=== PATIENT | male | born 1990 | race American Indian/Alaskan Native ===

== ENCOUNTER 2018-01-26 14:57 | Emergency (ER) | payer BC ==
[2018-01-26 15:43] VITALS: BP 119/76; O2SAT 99
[2018-01-26] MEDS ORDERED: Acetaminophen 160 mg/5 ml UD PO STA (16:13)
--- NOTE | 2018-01-26 16:17 | ED PDOC ---
HPI: CCC, URI, Sore Throat Time Seen by Provider: 01/26/18 16:04 Chief Complaint (Nursing): ENT Problem Chief Complaint (Provider): Sore Throat History Per: Patient History/Exam Limitations: no limitations Onset/Duration Of Symptoms: Days (x2) Current Symptoms Are (Timing): Still Present Sick Contacts (Context): Family Member(s) (, strep throat) Associated Symptoms: Sore Throat, Other (body aches). denies: Nausea, Vomiting Additional Complaint(s): Jonathan Vasquez is a 27 year old male with a past medical history of Non-Hodgkin's lymphoma, who is presenting to the ER with complaints of sore throat with associated body aches, onset 2 days ago. Patient reports that his sore throat is worse when swallowing or talking, and his was recently diagnosed with strep throat and is on her 4th day of antibiotics. He also reports that currently, he is not undergoing any treatment for his lymphoma. Patient denies any chest pain, shortness of breath, nausea or vomiting. He offers no other medical complaints at this time. PMD: none provided Past Medical History Reviewed: Historical Data, Nursing Documentation, Vital Signs Vital Signs: Last Vital Signs Temp 102 F H 01/26/18 16:23 Pulse 110 H 01/26/18 15:40 Resp 18 01/26/18 15:40 BP 119/76 01/26/18 15:40 Pulse Ox 99 01/26/18 16:34 - Medical History Other PMH: Non-Hodgkin's lymphoma - Surgical History Surgical History: Back Surgery (benign tumor) - Family History Family History: States: No Known Family Hx - Social History Current smoker - smoking cessation education provided: Yes Drugs: Denies - Home Medications Home Medications: Ambulatory Orders Medication Instructions Recorded Amoxicillin/Clavulanate [Augmentin 10 ml PO BID 7 Days ml 01/26/18 400-57] - Allergies Allergies/Adverse Reactions: Allergies Allergy/AdvReac Type Severity Reaction Status Date / Time No Known Allergies Allergy Verified 01/26/18 15:40 Review of Systems ROS Statement: Except As Marked, All Systems Reviewed And Found Negative Constitutional: Positive for: Other (body aches) ENT: Positive for: Throat Pain Cardiovascular: Negative for: Chest Pain Respiratory: Negative for: Shortness of Breath Gastrointestinal: Negative for: Nausea, Vomiting Physical Exam - Reviewed Nursing Documentation Reviewed: Yes Vital Signs Reviewed: Yes - Physical Exam Appears: Positive for: Non-toxic, In Acute Distress (mild distress) Skin: Positive for: Normal Color, Warm (Febrile), Dry ENT: Positive for: Pharyngeal Erythema, Tonsillar Swelling (bilateral purulent, enlarged), Other ((-) uvula deviation, (-) trismus, (+) moist mucous membranes) Lymphatic: Positive for: Adenopathy (bilateral submandibular lymphadenopathy) - ECG O2 Sat by Pulse Oximetry: 99 (RA) Pulse Ox Interpretation: Normal Medical Decision Making Medical Decision Making: Time: 16:13 Impression: tonsillectomy, strep secondary to close exposure Initial Plan: --Solu-Medrol 125 mg IM --Tylenol 960 mg PO Scribe Attestation: Documented by Silvia Amador acting as a scribe for Keri Garrett MD. Scribe Attestation: All medical record entries made by the Scribe were at my direction and personally dictated by me. I have reviewed the chart and agree that the record accurately reflects my personal performance of the history, physical exam, medical decision making, and the department course for this patient. I have also personally directed, reviewed, and agree with the discharge instructions and disposition. Disposition - Clinical Impression Clinical Impression: Tonsillitis Counseled Patient/Family Regarding: Studies Performed, Diagnosis, Need For Followup, Rx Given - Disposition Referrals: [facility] [Outside] Disposition: Routine/Home Disposition Time: 16:16 Condition: STABLE Additional Instructions: DRINK PLENTY OF HYDRATING FLUIDS AND REST TAKE TYLENOL AND/OR MOTRIN FOR PAIN OR FEVER FOLLOW UP WITH CLINIC IN 1-2 WEEKS TO SEE HOW YOU ARE DOING Prescriptions: Amoxicillin/Clavulanate [Augmentin 400-57] 10 ml PO BID 7 Days ml Instructions: Strep Throat (DC) Forms: [facility] ED School/Work Excuse
[2018-01-26 16:47] VITALS: PULSE 103; RESP 16; TEMP 99
== END 2018-01-26 16:44 | disposition home or self-care (01) ==
LOC: H.ER 14:57
DX: J03.90 Acute tonsillitis, unspecified (principal); R50.9 Fever, unspecified; F17.200 Nicotine dependence, unspecified, uncomplicated
CPT/HCPCS: 96372; 99283; J2930

== ENCOUNTER 2018-12-13 08:49 | Emergency (ER) | payer BC ==
[2018-12-13] MEDS ORDERED: Albuterol-Ipratrop 3 mg / 0.5 (3 ml) UD INH STA (09:27)
[2018-12-13] MEDS ORDERED: Albuterol-Ipratrop 3 mg / 0.5 (3 ml) UD ONE (09:33)
--- NOTE | 2018-12-13 09:46 | ED PDOC ---
History of Present Illness History of Present Illness: Jonathan Vasquez is a 28 year old male, with no significant past medical history, who presents to the emergency department complaining of chills, nonproductive cough, sweats and body aches ongoing for x3 days. Patient reports having a Fever of 101 x3 days ago and states he has a throat pain with coughing. He took Mucinex at 03:45 today. He denies runny nose, chest pain, shortness of breath, nausea, vomit, headache or other medical complaints. PMD: None provided. HPI: Influenza Time Seen by Provider: 12/13/18 09:13 Chief Complaint: Flu-like Symptoms Chief Complaint (Provider): Flu-like symptoms History Per: Patient Exam Limitations: no limitations, physical impairment Onset/Duration Of Symptoms: Days (x3) Symptoms include: fever, bodyaches, sore throat (w/ cough), cough. denies: vomiting, chest pain, difficulty breathing Past Medical History Reviewed: Historical Data, Nursing Documentation, Vital Signs Vital Signs: Last Vital Signs Temp 98.8 F 12/13/18 08:56 Pulse 88 12/13/18 08:56 Resp 18 12/13/18 08:56 BP 124/76 12/13/18 08:56 Pulse Ox 99 12/13/18 08:56 - Medical History PMH: Bronchitis - Surgical History Surgical History: Back Surgery (benign tumor) Other surgeries: benign tumor removal from back - Family History Family History: States: Unknown Family Hx - Social History Current smoker - smoking cessation education provided: No Alcohol: None Drugs: Denies - Home Medications Home Medications: Ambulatory Orders Medication Instructions Recorded Amoxicillin/Clavulanate [Augmentin 10 ml PO BID 7 Days ml 01/26/18 400-57] Albuterol HFA [Ventolin HFA 90 2 puff IH [id number] PRN #1 bottle 12/13/18 mcg/actuation (8 g)] Azithromycin [Zithromax] 250 mg PO DAILY #4 tab 12/13/18 - Allergies Allergies/Adverse Reactions: Allergies Allergy/AdvReac Type Severity Reaction Status Date / Time No Known Allergies Allergy Verified 01/26/18 15:40 Review of Systems ROS Statement: Except As Marked, All Systems Reviewed And Found Negative Constitutional: Positive for: Fever (resolved), Chills, Sweats, Other (body aches) ENT: Negative for: Nose Discharge (runny nose) Cardiovascular: Negative for: Chest Pain Respiratory: Positive for: Cough (non-productive). Negative for: Shortness of Breath Gastrointestinal: Negative for: Nausea, Vomiting Neurological: Negative for: Headache Physical Exam - Reviewed Nursing Documentation Reviewed: Yes Vital Signs Reviewed: Yes - Physical Exam Appears: Positive for: No Acute Distress Head Exam: Positive for: ATRAUMATIC, NORMAL INSPECTION, NORMOCEPHALIC Skin: Positive for: Normal Color, Warm, Dry Eye Exam: Positive for: Normal appearance, EOMI, PERRL ENT: Positive for: Normal ENT Inspection, Pharynx Is (clear). Negative for: Pharyngeal Erythema, Tonsillar Exudate, Tonsillar Swelling Neck: Positive for: Normal, Painless ROM, Supple Cardiovascular/Chest: Positive for: Regular Rate, Rhythm. Negative for: Murmur Respiratory: Positive for: Normal Breath Sounds. Negative for: Respiratory Distress Gastrointestinal/Abdominal: Positive for: Normal Exam, Soft. Negative for: Tenderness, Guarding, Rebound Back: Positive for: Normal Inspection. Negative for: L CVA Tenderness, R CVA Tenderness, Vertebral Tenderness Extremity: Positive for: Normal ROM (upper and lower extremities). Negative for: Deformity, Swelling Neurologic/Psych: Positive for: Alert, Oriented Medical Decision Making Medical Decision Making: Time: 09:13 Initial Impression: Viral illness Initial Plan: --Chest two views (PA/LAT) [RAD] --Duoneb 3 ml INH --Influenza A B --Reevaluation 10:10 CXR FINDINGS: LINES AND TUBES: None. LUNG AND PLEURA: The lungs are well inflated and clear. No pleural effusion or pneumothorax. HEART AND MEDIASTINUM: The heart is not enlarged. No aortic atherosclerotic calcifications present. The hilar and mediastinal contours are within normal limits. SKELETAL STRUCTURES: The bony structures are within normal limits for the patient's age. VISUALIZED UPPER ABDOMEN: Normal. OTHER FINDINGS: None. IMPRESSION: No active pulmonary disease. 11:45 Upon provider evaluation patient is medically stable, and requires no further treatment in the ED at this time. Patient will be discharged home. Counseling was provided and all questions were answered regarding diagnosis and need for follow up with PMD. There is agreement to discharge plan. Return if symptoms persist or worsen. Scribe Attestation: Documented by Az De La Rosa, acting as a scribe for Jazmine Schwab MD Provider Scribe Attestation: All medical record entries made by the Scribe were at my direction and personally dictated by me. I have reviewed the chart and agree that the record accurately reflects my personal performance of the history, physical exam, medical decision making, and the department course for this patient. I have also personally directed, reviewed, and agree with the discharge instructions and disposition. - ECG O2 Sat by Pulse Oximetry: 99 Disposition - Clinical Impression Clinical Impression: Acute bronchitis - Disposition Referrals: [facility] [Outside] Disposition: Routine/Home Disposition Time: 11:45 Condition: STABLE Prescriptions: Albuterol HFA [Ventolin HFA 90 mcg/actuation (8 g)] 2 puff IH [id number] PRN #1 bottle PRN Reason: Shortness Of Breath Azithromycin [Zithromax] 250 mg PO DAILY #4 tab Instructions: Acute Bronchitis Forms: [employer] (Montenegrin)
--- NOTE | 2018-12-13 10:14 | RAD ---
Date of service: 12/13/2018 HISTORY: Cough COMPARISON: No prior. TECHNIQUE: Chest PA and lateral FINDINGS: LINES AND TUBES: None. LUNG AND PLEURA: The lungs are well inflated and clear. No pleural effusion or pneumothorax. HEART AND MEDIASTINUM: The heart is not enlarged. No aortic atherosclerotic calcifications present. The hilar and mediastinal contours are within normal limits. SKELETAL STRUCTURES: The bony structures are within normal limits for the patient's age. VISUALIZED UPPER ABDOMEN: Normal. OTHER FINDINGS: None. IMPRESSION: No active pulmonary disease.
[2018-12-13] MEDS ORDERED: Sodium Chloride 0.9% 1,000 ML IV STA (12:51)
[2018-12-13 13:16] VITALS: RESP 16
[2018-12-13 13:32] LABS: VENOUS BLOOD GAS BASE EXCESS 3.3 mmol/L (0.0-2.0); VENOUS BLOOD GAS PCO2 48 mmHg (40-60); VENOUS BLOOD GAS PO2 24 mm/Hg (30-55); VENOUS BLOOD PH 7.39 (7.32-7.43)
[2018-12-13 13:33] LABS: BASO % 0.4 % (0.0-2.0); EOS % 0.2 % (0.0-4.0); HEMOGLOBIN 15.9 g/dL (12.0-18.0); LYMPH # 0.9 K/uL (1.0-4.3); MEAN CORPUSCULAR HEMOGLOBIN 26.4 pg (27.0-31.0); MEAN CORPUSCULAR HGB CONC 32.6 g/dL (33.0-37.0); MEAN PLATELET VOLUME 6.8 fl (7.2-11.7); MONO # 1.1 K/uL (0.0-0.8); MONO % 13.3 % (0.0-10.0); NEUT % 75.1 % (50.0-75.0); NRBC % 0.2 % (0.0-0.0); RBC 6.03 Mil/uL (4.40-5.90); RED CELL DISTRIBUTION WIDTH 14.9 % (11.5-14.5); WHITE BLOOD COUNT 8.1 K/uL (4.8-10.8)
[2018-12-13 14:59] VITALS: BP 111/76; PULSE 87; TEMP 98.3; O2SAT 100
== END 2018-12-13 14:57 | disposition home or self-care (01) ==
LOC: H.ER 08:49
DX: J20.9 Acute bronchitis, unspecified (principal)
CPT/HCPCS: 71046; 82803; 85025; 87040; 87804; 94640; 96360; 99285; J7030